=== PATIENT | female | born 1985 | race Caucasian/White ===

== ENCOUNTER 2023-08-06 02:21 | Emergency (ER) | payer OTHER, SELFPAY ==
[2023-08-06 02:23] VITALS: BP 161/94
[2023-08-06 03:16] VITALS: BMI 33.3
[2023-08-06 03:47] LABS: Alcohol 168 mg/dl
--- NOTE | 2023-08-06 03:50 | ED.GENMED ---
History of Present Illness
General
Chief Complaint: Suicidal Ideation
Source: patient
Exam Limitations: none
Time Seen by Provider: 08/06/23 02:34
Nursing documentation reviewed up to this point in time: agreed with
History of Present Illness
History of Present Illness:
This is a 38-year-old woman who has longstanding history of depression reported bipolar depression, she follows regularly with a psychiatrist and has been maintained on Lexapro as well as Lamictal for quite some time.
She admits to at least 6-month history of feeling sad, feeling that she is 'in a fog.' The symptoms have been off and on but more persistent over the past 6 months and have been worsening over the past several weeks. [place] and admits to suicidal ideations contemplating walking into the ocean, wanting to disappear/evaporate but admits that she is not fond of contemplating drowning.
She was evaluated at [facility] ED last week, observed in the ED and was evaluated by psychiatry there and discharged to home with safety plan.
She has since followed up with her psychiatrist and Abilify was added 2 days ago. Despite starting Abilify she continues with significant sadness, fleeting thoughts of suicide but no definitive plan.
She has voluntarily brought herself to the ED for further evaluation.
She does admit to drinking alcohol tonight but denies daily nor frequent use.
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
She is currently working full-time at the [employer] for the past 16 years.
She resides at home with her boyfriend and her 16-year-old son.
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 Levothyroxine dose recently increased, patient states she is scheduled for follow-up thyroid functions next month. According to external
medical summary however PCP notes thyroid functions will be due for recheck at the end of June.
She denies risk of , status post tubal ligation.
Past History
Past History
ED Past Medical History: Hypothyroidism and Psychiatric (Major depressive disorder, bipolar disorder)
ED Past Surgical History: Gynecological (Tubal ligation)
Social History
Tobacco: Non-smoker
Alcohol: Occasional
Drug: Other (Former methamphetamine abuse, has been sober since 2007)
Personal: Single
Living: with family (Resides with boyfriend and her 16-year-old son)
Employment: Employed ([employer])
Family History
Family History: Other (Noncontributory)
Phy Exam
Physical Exam
Physical Exam:
GENERAL: 38-year-old woman appears her stated age, awake and alert, tearful and somewhat distraught but easily communicative. Speech is clear. Normal thought processes.
EYE: Tearful. Minimally injected conjunctiva.
NECK: Supple, nontender, no meningismus, no significant adenopathy.
ENT: oral mucosa is moist.
CARDIAC: Regular rate and rhythm. no murmur.
LUNGS: Clear breath sounds bilaterally, no acute respiratory distress, no wheezes/rales/rhonchi
ABDOMEN: Soft, nondistended, without focal tenderness, normoactive BS.
NEUROLOGICAL: Alert and oriented x3, no focal neuro deficits. Gait is yip and steady.
SKIN: Warm and dry, normal color, skin intact. No rash.
MUSCULOSKELETAL: No C/C/E. peripheral pulses are full and equal b/l. No palpable tenderness.
PSYCH: Tearful, admits to suicidal ideations but no concrete plan and no prior history of suicide attempts. No prior psychiatric hospitalizations. Admits to ongoing depressive symptoms, lack of energy, increased sleep. No hallucinations. Fair
insight and judgment. Continues to work full-time, goal oriented and future oriented.
Course
Orders/Labs/Results
Orders:
Orders
08/06/23 02:31
Crisis Consult Urgent
Reason for Consult: suicidal ideations
1:1 Observation - Suicide/ Violent Behavior As Directed
08/06/23 03:05
Alcohol Urgent
TSH Reflex To Free T4 Urgent
Urine Drug Abuse Screen Urgent
Date Specimen was Collected: 08/06/23
Time Specimen was Collected: 02:55
Vital Signs
Initial and Last Documented VS:
Initial Vital Signs
Temp Pulse Resp BP Pulse Ox
98.3 F 134 24 161/94 96
08/06/23 02:23 08/06/23 02:23 08/06/23 02:23 08/06/23 02:23 08/06/23 02:23
Last Documented Vital Signs
Temp Pulse Resp BP Pulse Ox
98.3 F 134 24 161/94 96
08/06/23 02:23 08/06/23 02:23 08/06/23 02:23 08/06/23 02:23 08/06/23 02:23
MDM/Problems Addressed
Differential Diagnosis Includes:
Patient presents voluntarily for evaluation of ongoing depression, intermittent thoughts of suicide/ wish but no concrete plan and no prior history of suicide attempts.
Follows with a psychiatrist and recently started Abilify just 2 days ago.
She reports history of bipolar disorder but currently there is no evidence of romero/hyperactivity, no evidence of psychosis.
She does admit to consuming alcohol tonight but denies daily nor even frequent use.
Remote history of substance use/methamphetamine but reports clean and sober since 2007.
There is nothing on physical exam to suggest/suspect toxidrome.
She does have history of hypothyroidism with recent up titration of levothyroxine. It is doubtful that current symptoms are thyroid related but will check thyroid functions and will check EtOH as well as UDS.
[facility] has been consulted.
Chronic conditions affecting care: Psychiatric illness and Other (Hypothyroidism)
Acute Exacerbation and/or Progression of Chronic Illness: Psychiatric illness
*Pulse Oximetry
Patient hypoxic: no
*Critical Care Note
Total Time (30-74mins, 75-104mins- exclusive of procedures): Not Applicable
Update Note
Update Note:
08/06/2023 0608 AM
Patient has been evaluated by [facility] ([place], [place]) and has elected to enter an outpatient partial program.
She continues to have no discrete plan for suicide, no prior attempts and remains goal-directed, future oriented.
UDS is negative as expected.
Alcohol level 168.
TSH is normal at 0.92.
Will discharge to home will plan to initiate outpatient partial program as directed by [facility] ([place], [place]). I have also urged patient to promptly follow-up with her own psychiatrist and she has been urged to discontinue alcohol consumption as I suspect
this may be aggravating her depression/melancholy.
Return precautions discussed.
ED Attending Note
-
Portions of this chart may have been created with voice recognition software.� Occasional wrong word or��sound alike� substitutions may have occurred due to the inherent limitations of voice recognition software.
Discharge Plan
Departure
Patient Disposition: Home (Routine Discharge)
Date of Disposition: 08/06/23
Time of Disposition: 06:05
Patient with high blood pressure during this ER visit?: No
Condition: Good
Discharge Problem:
Major depression, recurrent
Instructions: Alcohol use - when is drinking a problem?, Depression, Adult (DC), Suicide Prevention
Prescriptions:
No Action
levothyroxine 88 MCG tablet
88 mcg PO DAILY AT 0700
lamotrigine 100 MG tablet
200 mg PO HS
escitalopram oxalate 10 MG tablet
10 mg PO HS
Referrals:
NONE,* [Family Provider] -
Activity Restrictions/Additional Instructions:
Follow-up with outpatient resources/outpatient partial program as provided by [facility].
Prompt follow-up with your psychiatrist as well for recheck.
If you are feeling worse, continue with feelings of suicide, wanting to end her life, prompt return to the ER for further evaluation.
We behoove you to discontinue alcohol consumption as this may be contributing/adding to your depression.
Interventions
Interventions:
*Risk Screen - Suicide Last Done: 08/06/23 02:23
*General Assessment Last Done: 08/06/23 03:14
*Neglect/Abuse Screening Last Done: 08/06/23 02:23
ED- Fall Risk Assessment Last Done: 08/06/23 02:49
*ED COVID-19 Vaccine History Last Done: 08/06/23 03:14
ED-Psychological Assessment Last Done: 08/06/23 02:47
Discharge Date and Time
Print Language: ARGENTINE
[2023-08-06 04:17] LABS: TSH Reflex To Free T4 0.92 uIU/ml (0.47-4.68)
[2023-08-06 04:20] LABS: Amphetamines Negative (Negative); Barbiturates Negative (Negative); Benzodiazepines Negative (Negative); Buprenorphine Negative (Negative); Cocaine Negative (Negative); Marijuana Negative (Negative); Methadone Negative (Negative); Methamphetamines Negative (Negative); Opiates Negative (Negative); Phencyclidine Negative (Negative); Tricyclic Antidepressants Negative (Negative)
[2023-08-06 06:12] VITALS: BP 116/63
== END 2023-08-06 06:21 | disposition home or self-care (01) ==
LOC: EMR 02:21
PROVIDERS: EMERGENCY PHYSICIAN Emergency Medicine
DX: R45.851 Suicidal ideations (principal); F33.9 Major depressive disorder, recurrent, unspecified; F10.90 Alcohol use, unspecified, uncomplicated; Y90.6 Blood alcohol level of 120-199 mg/100 ml; F31.9 Bipolar disorder, unspecified; E03.9 Hypothyroidism, unspecified; F15.11 Other stimulant abuse, in remission; Z79.899 Other long term (current) drug therapy; Z79.890 Hormone replacement therapy
CPT/HCPCS: 99285; 80306; 82077; 84443

== ENCOUNTER 2023-08-16 21:49 | Emergency (ER) | payer OTHER, SELFPAY ==
[2023-08-16 21:51] VITALS: BP 140/84
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
[2023-08-16] MEDS: TYLENOL 1000 MG PO (22:30)
== END 2023-08-17 00:13 | disposition home or self-care (01) ==
LOC: EMR 21:49
PROVIDERS: EMERGENCY PHYSICIAN Emergency Medicine
DX: S09.90XA Unspecified injury of head, initial encounter (principal); S01.01XA Laceration without foreign body of scalp, initial encounter; W22.8XXA Striking against or struck by other objects, initial encounter; E03.9 Hypothyroidism, unspecified; F31.9 Bipolar disorder, unspecified; Z98.51 Tubal ligation status
CPT/HCPCS: 99284; 70450; 72125